=== PATIENT | female | born 2000 | race Two or more races ===

== ENCOUNTER 2024-12-10 16:35 | Emergency (ER) | payer MEDICAID, SELFPAY ==
[2024-12-10 17:00] VITALS: BP 130/72; PULSE 86; RESP 18; TEMP 37.1; O2SAT 97; BMI 27.4
--- NOTE | 2024-12-10 17:05 | PD.EDRME ---
Rapid Medical Screening Exam RME Arrival date/time: 12/10/24 16:35 24-year-old female with no known medical history presents to the emergency room with a chief complaint of cough, congestion, fever x 3 days I have greeted and performed a focused initial assessment of this patient. A comprehensive ED assessment and evaluation of the patient, analysis of all test results, and completion of the medical decision making process will be conducted by additional ED providers. Chief Complaint: Flu Like Symptoms Vital signs: Vital Signs Temperature 98.8 F 12/10/24 17:00 Pulse Rate 86 12/10/24 17:00 Respiratory Rate 18 12/10/24 17:00 Blood Pressure 130/72 12/10/24 17:00 Pulse Oximetry (%) 97 12/10/24 17:00 Oxygen Delivery Method Room Air 12/10/24 17:00 Vital signs reviewed by provider: Yes
--- NOTE | 2024-12-10 17:21 | EDNOTE_ITS ---
Upper Respiratory Inf. RME/HPI General Chief Complaint: Flu Like Symptoms Stated Complaint: Cough X 2 weeks, fever 2 days ago Time Seen by Provider: 12/10/24 17:21 Source: patient Arrival date/time: 12/10/24 16:35 24-year-old female with no known medical history presents to the emergency room with a chief complaint of cough congestion and fever x 3 days. Patient states she has had a cough for 2 weeks. Mode of arrival: ambulatory Limitations: no limitations RME / HPI RME / HPI Narrative: 12/10/24 16:35 24-year-old female with no known medical history presents to the emergency room with a chief complaint of cough, congestion, fever x 3 days I have greeted and performed a focused initial assessment of this patient. A comprehensive ED assessment and evaluation of the patient, analysis of all test results, and completion of the medical decision making process will be conducted by additional ED providers. Related Data Previous Rx's ?Medication ?Instructions ?Recorded cyclobenzaprine 5 mg tablet 5 mg PO QHSPRN PRN muscle spasm 03/10/23 #10 tabs ibuprofen 600 mg tablet 600 mg PO TID PRN pain #30 t abs 03/10/23 Allergies Allergy/AdvReac Type Severity Reaction Status Date / Time NKA* Allergy Uncoded 03/10/23 21:17 Review of Systems Review of Systems Systems Reviewed: All systems reviewed, normal except as documented Constitutional Constitutional: Reports system reviewed and no additional complaints, except as documented, Denies fatigue, Reports fever(s), Denies headache(s) and Denies weakness Eyes Eyes: Reports system reviewed and no additional complaints, except as documented, Denies blurry vision and Denies change in vision ENT Ears, Nose, Mouth, and Throat: Reports system reviewed and no additional complaints, except as documented, Denies otalgia, Denies headache(s), Reports nasal congestion, Denies throat swelling and Denies vertigo Cardiovascular Cardiovascular: Reports system reviewed and no additional complaints, except as documented, Denies chest pain, Denies dyspnea and Denies dyspnea on exertion Respiratory Respiratory: Reports system reviewed and no additional complaints, except as documented, Denies chest congestion, Reports cough, Denies dyspnea, Denies dyspnea on exertion and Denies wheezing Gastrointestinal Gastrointestinal: Reports system reviewed and no additional complaints, except as documented, Denies abdominal pain, Denies cramping, Denies nausea and Denies vomiting Genitourinary Genitourinary: Reports system reviewed and no additional complaints, except as documented Musculoskeletal Musculoskeletal: Reports system reviewed and no additional complaints, except as documented and Denies back pain Integumentary/Breasts Skin/Breast: Reports system reviewed and no additional complaints, except as documented and Denies wounds Neurologic Neurologic: Reports system reviewed and no additional complaints, except as documented, Denies confusion, Denies headache(s), Denies lack of coordination, Denies vertigo and Denies weakness Psychiatric Psychiatric: Reports system reviewed and no additional complaints, except as documented, Denies anxiety, Denies confusion, Denies depression, Denies paranoia, Denies suicidal ideation and Denies tactile hallucinations Endocrine Endocrine: Reports system reviewed and no additional complaints, except as documented and Denies fatigue Hematologic/Lymphatic Hematologic/Lymphatic: Reports system reviewed and no additional complaints, except as documented and Denies lymphadenopathy Allergic/Immunologic Allergic/Immunologic: Reports system reviewed and no additional complaints, except as documented, Denies throat swelling, Denies urticaria and Denies wheezing Past Medical History Social History SMOKING STATUS: Never smoker ED Exam General Limitations: Present no limitations General appearance: Present alert and in no apparent distress Head Head exam: Present atraumatic Eye Eye exam: Present normal appearance, PERRL and EOMI ENT ENT exam: Present normal exam, normal oropharynx and mucous membranes moist Neck Neck exam: Present normal inspection, full ROM and trachea midline Chest Chest inspection: Present normal inspection and symmetric chest wall rise Respiratory Respiratory exam: Present normal lung sounds bilaterally; Absent respiratory distress, wheezes, stridor, accessory muscle use or prolonged expiratory phase Cardiovascular Cardiovascular exam: Present regular rate, normal rhythm and normal heart sounds Abdominal Exam Abdominal exam: Present soft and normal bowel sounds Extremities Exam Extremities exam: Present normal inspection and full ROM Back Exam Back exam: Present normal inspection and full ROM Neurological Exam Neurological exam: Present alert, oriented X3 and CN II-XII intact Psychiatric Psychiatric exam: Present normal affect and normal mood Skin Skin exam: Present warm, dry, intact and normal color Course Quality Measures none Orders Category Date Time Status Bedside COVID-19 Antigen Test NOW Care 12/10/24 17:05 Completed Bedside Influenza A&B Antigen Test NOW Care 12/10/24 17:05 Completed Vital Signs Vital signs: Vital Signs Temperature 98.8 F 12/10/24 17:00 Pulse Rate 86 12/10/24 17:00 Respiratory Rate 18 12/10/24 17:00 Blood Pressure 130/72 12/10/24 17:00 Pulse Oximetry (%) 97 12/10/24 17:00 Oxygen Delivery Method Room Air 12/10/24 17:00 O2 saturation 97% within normal limits Upper Respiratory Infection MDM Narrative MDM Narrative:: 24-year-old female with no known medical history presents to the emergency room with a chief complaint of cough congestion and fever x 3 days. Patient states she has had a cough for 2 weeks. Patient is hemodynamically stable and in no apparent distress. Lung sounds are clear bilaterally with no wheezing or any abnormal breath sounds. The patient is afebrile with an O2 saturation of 97% on room air. Patient tested positive for COVID-19 Patient was educated to continue to take Tylenol and ibuprofen for fever management and increase her oral fluid intake. Patient was discharged and educated to follow-up with primary care provider and return to the emergency room for any evidence of worsening signs or symptoms Patient data External records reviewed:: [facility] previous records Clinical information provided by:: patient Social determinants that could affect healthcare access:: none Patient has the following chronic illnesses:: No chronic illness How is presenting disease/condition affected by chronic disease/condition?: no chronic disease Evaluation data The following diagnostics were reviewed and interpreted by me:: lab results and radiology exam(s) Lab and/or radiology exams considered but not ordered:: Labs and radiology exams considered and ordered Interpretation Summary: N/A Medications / Prescriptions Medications or Prescriptions considered but not ordered:: N/A Medication administrations:: N/A Consultations Consultation(s) initiated? (list below): No Diagnosis Upper Respiratory Differential Diagnosis: upper respiratory infection, viral infection, bronchitis, influenza and other (COVID-19) Most likely diagnosis given after review of the tests above:: COVID-19 Admission Indicated Admission indicated?: not indicated Admission Request Was there a request for admission?: No Disposition Plan Disposition Plan: Discharge Discharge Attestation Discharge Attestation: The patient and all family members were given an opportunity to ask questions and understood the discharge instructions. Discharge instructions specifically effects, indications for sooner follow up or return to the emergency department, and the expected course of current diagnosis. Patient condition: Stable Discharge Plan Plan Patient Disposition: HOME (Self Care) Disposition Comment: Stable Prescriptions/Referrals Prescriptions/Med Rec: No Action ibuprofen 600 mg tablet 600 mg PO TID PRN (Reason: pain) Qty: 30 0RF cyclobenzaprine 5 mg tablet 5 mg PO QHSPRN PRN (Reason: muscle spasm) Qty: 10 0RF Problem List Clinical Impression: COVID-19 Patient/Caregiver Discharge Instructions Education Materials: 2018-nCoV Additional Instructions: Please follow-up with your primary care provider in the next 24 to 48 hours. You tested positive for COVID-19. Please continue to take Tylenol and ibuprofen for fever management Please increase your oral and fluid intake For any evidence of worsening signs or symptoms return to the emergency room immediately Print Language: Nepali Stand Alone Forms: Kirti Award Info., Work/School Release, Patient Portal Info Letter PA/CLOTHING MANAGER Supervising Physician PA/THELMA Supervising Physician: Dr. Matamoros
== END 2024-12-10 18:17 | disposition home or self-care (01) ==
LOC: SERX 17:51
PROVIDERS: Emergency Provider Emergency Medicine
DX: U07.1 COVID-19 (principal)
CPT/HCPCS: 87400; 87811; 99283

== ENCOUNTER 2025-01-18 23:28 | Emergency (ER) | payer MEDICAID, SELFPAY ==
[2025-01-18 23:29] VITALS: BMI 27.6
[2025-01-19 00:58] VITALS: BP 127/79; PULSE 95; RESP 20; TEMP 36.8; O2SAT 99
--- NOTE | 2025-01-19 01:36 | PD.EDRME ---
Rapid Medical Screening Exam RME Arrival date/time: 01/18/25 23:28 Chief Complaint: Flu Like Symptoms Time Seen by Provider: 01/19/25 01:27 Vital signs: Vital Signs Temperature 98.3 F 01/19/25 00:58 Pulse Rate 95 01/19/25 00:58 Respiratory Rate 20 01/19/25 00:58 Blood Pressure 127/79 01/19/25 00:58 Pulse Oximetry (%) 99 01/19/25 00:58 Oxygen Delivery Method Room Air 01/19/25 00:58 Vital signs reviewed by provider: Yes RME Narrative: 24-year-old female currently 8 weeks A0 presents for evaluation of headache x 1 day. She notes dysuria and intermittent suprapubic tenderness x 3 days. Denies vaginal bleeding and cramping.
[2025-01-19] MEDS: ACETAMINOPHEN 325 MG TABLET 650 MG PO (01:45)
--- NOTE | 2025-01-19 02:40 | XR_ITS ---
Examination: PA lateral chest 2 views Technique: Upright PA lateral chest 2 views Exam date and time: January 19, 2025 0151 hrs. Indications: Coughing beginning one month ago. Findings: Accentuation basilar bronchovascular markings. No lobar pneumonia. Normal heart size Impression: Mild basilar bronchitis pattern
[2025-01-19 04:55] VITALS: BP 116/76; PULSE 76; RESP 18; TEMP 37; O2SAT 98
--- NOTE | 2025-01-24 15:24 | PD.EDURI ---
Upper Respiratory Inf. RME/HPI General Chief Complaint: Flu Like Symptoms Stated Complaint: COUGH X1 MONTH Time Seen by Provider: 01/19/25 01:27 Arrival date/time: 01/18/25 23:28 RME / HPI RME / HPI Narrative: 24-year-old female currently presents for evaluation of cough x1 month. Related Data Previous Rx's ?Medication ?Instructions ?Recorded cyclobenzaprine 5 mg tablet 5 mg PO QHSPRN PRN muscle spasm 03/10/23 #10 tabs ibuprofen 600 mg tablet 600 mg PO TID PRN pain #30 tabs 03/10/23 albuterol sulfate 90 mcg/actuation 2 puff inhalation Q6H PRN 01/19/25 aerosol inhaler (Ventolin HFA) shortness of breath or wheezing #6.7 grams cetirizine 10 mg capsule (Zyrtec) 10 mg PO QDAY 30 days #30 caps 01/19/25 Allergies Allergy/AdvReac Type Severity Reaction Status Date / Time NKA* Allergy Uncoded 03/10/23 21:17 Course Orders Category Date Time Status Bedside COVID-19 Antigen Test NOW Care 01/19/25 01:35 Completed Bedside Influenza A&B Antigen Test NOW Care 01/19/25 01:36 Completed CXR2 [XR chest 2V] Stat Exams 01/19/25 02:40 Completed Acetaminophen Tab [Tylenol Tab] Med 01/19/25 01:35 Discontinued 650 mg PO X1 ONE Vital Signs Vital signs: Vital Signs Temperature 98.3 F 01/19/25 00:58 Pulse Rate 95 01/19/25 00:58 Respiratory Rate 20 01/19/25 00:58 Blood Pressure 127/79 01/19/25 00:58 Pulse Oximetry (%) 99 01/19/25 00:58 Oxygen Delivery Method Room Air 01/19/25 00:58 Upper Respiratory Infection Medications / Prescriptions Medication administrations:: Medication Administration History Discontinued Medications Acetaminophen (Acetaminophen 325 Mg Tablet) 650 mg PO X1 ONE Stop: 01/19/25 01:36 Last Admin: 01/19/25 01:45 Dose: 650 mg Documented By: BEBA Discharge Plan Plan Patient Disposition: HOME (Self Care) Disposition Comment: stable Prescriptions/Referrals Prescriptions/Med Rec: New Zyrtec 10 mg capsule 10 mg PO QDAY 30 Days Qty: 30 0RF albuterol sulfate [Ventolin HFA] 90 mcg/actuation HFA aerosol inhaler 2 puff inhalation Q6H PRN (Reason: shortness of breath or wheezing) Qty: 6.7 0RF No Action ibuprofen 600 mg tablet 600 mg PO TID PRN (Reason: pain) Qty: 30 0RF cyclobenzaprine 5 mg tablet 5 mg PO QHSPRN PRN (Reason: muscle spasm) Qty: 10 0RF Referrals: Bill Rodarte MD [Primary Care Provider] - In 1 week Problem List Clinical Impression: Seasonal allergies Patient/Caregiver Discharge Instructions Other Activity Instructions:: Take Zyrtec once daily for seasonal allergies. Continue to monitor cough and follow-up with primary care for further evaluation within the week. Use albuterol inhaler as needed for wheezing. Return to ED if your symptoms worsen or change. Education Materials: ED Allergy Seasonal (AZERBAIJANI) Print Language: Divehi Stand Alone Forms: Kirti Award Info., Patient Portal Info Letter PA/OFFICE MANAGER EXECUTIVE ASSISTANT Supervising Physician PA/OFFICE MANAGER EXECUTIVE ASSISTANT Supervising Physician: Dr. Bradshaw
== END 2025-01-19 04:56 | disposition home or self-care (01) ==
PROVIDERS: Emergency Provider Emergency Medicine; PCP Family Medicine
DX: J30.2 Other seasonal allergic rhinitis (principal)
CPT/HCPCS: 71046; 81001; 87400; 87811; 99283; A9270

== ENCOUNTER 2025-08-27 20:39 | Emergency (ER) | payer MEDICAID, SELFPAY ==
[2025-08-27 20:40] VITALS: BMI 27.6
[2025-08-27 20:49] VITALS: BP 131/78; PULSE 100; RESP 18; TEMP 36.7; O2SAT 100
--- NOTE | 2025-08-27 21:00 | XR_ITS ---
Examination: OB Transvaginal ultrasound of the pelvis, complete Technique: Transvaginal sonographic images pelvis performed using yun scale imaging Exam date and time: August 27, 2025, 2145 hours INDICATIONS: Pelvic pain today early by history. FINDINGS: Uterus 10.5 cm, CRL 0.6 cm corresponds to 6 weeks 3 days gestational age Cardiac motion 137 bpm Subchorionic hemorrhage 14 x 8 mm Right ovary 2.4 cm arterial flow Left ovary obscured by bowel gas IMPRESSION: Intrauterine gestation 6 weeks 3 days, recommend short-term follow-up pelvic sonography given the subchorionic hemorrhage
--- NOTE | 2025-08-27 21:00 | PD.EDRME ---
Rapid Medical Screening Exam [facility] Arrival date/time: 08/27/25 20:39 24F at approximately 7 weeks and with no significant PMH presents to ED with several hours of pelvic pain and vaginal spotting. Patient denies dysuria. Chief Complaint: Vaginal Bleeding Time Seen by Provider: 08/28/25 01:55 Vital signs: Vital Signs Temperature 98.0 F 08/27/25 20:49 Pulse Rate 100 08/27/25 20:49 Respiratory Rate 18 08/27/25 20:49 Blood Pressure 131/78 H 08/27/25 20:49 Pulse Oximetry (%) 100 08/27/25 20:49 Oxygen Delivery Method Room Air 08/27/25 20:49 Exam: Well-appearing Clinical Impression: Miscarriage vs vs vaginal bleeding vs ectopic vs ovarian cyst vs subchorionic hemorrhage
[2025-08-27 21:22] LABS: Collection Type, Urine Clean Catch
[2025-08-27 21:23] LABS: Basophils # (Auto) 0.1 Thou/mm3 (0.0-0.2); Basophils % (Auto) 1 % (0-2.5); Eosinophils # (Auto) 0.3 Thou/mm3 (0.0-0.5); Eosinophils % (Auto) 2 % (0-10); Hematocrit 36.1 % (36.0-46.0); Hemoglobin 11.9 g/dL (12.0-16.0); Immature Granulocytes Auto 0.05 Thou/mm3 (0.00-0.00); Lymphocytes # (Auto) 3.1 Thou/mm3 (1.0-4.8); Lymphocytes % (Auto) 26 % (10-50); Mean Corpuscular HGB Conc 33.0 g/dl (31.0-37.0); Mean Corpuscular Hemoglobin 28.1 pg (25.0-35.0); Mean Corpuscular Volume 85 fL (80-100); Monocytes # (Auto) 0.9 Thou/mm3 (0.0-0.8); Monocytes % (Auto) 7 % (0-12); Neutrophils # (Auto) 7.6 Thou/mm3 (1.8-7.7); Neutrophils % (Auto) 64 % (37-80); Nucleated Red Blood Cell # 0.00 Thou/mm3 (0.00-0.00); Nucleated Red Blood Cell % 0 /100 WBC (0); Platelet Count 198 Thou/mm3 (140-440); RDW Standard Deviation 41.6 fL (36.4-46.3); Red Blood Count 4.23 Miln/mm3 (4.00-5.20); White Blood Count 12.0 Thou/mm3 (3.6-11.0)
[2025-08-27 21:26] LABS: Bacteria,Urine Rare; Bilirubin,Urine Negative (Negative); Blood,Urine Negative (Negative); Clarity,Urine Clear (Clear/Hazy); Color,Urine Lt-Yellow (Lt Yel-Yel); Glucose, Urine Negative (Negative); Ketones,Urine Negative (Negative); Leukocyte Esterase,Urine Negative (Negative); Nitrite,Urine Negative (Negative); PH,Urine 6.0 (5.0-7.0); Protein,Urine Trace (Neg - Trace); RBC,Urine 2 /hpf (0-3); Specific Gravity,Urine 1.032 (1.001-1.035); Squamous Epithelial Cell,Urine 2 /hpf (0-5); Urobilinogen,Urine Negative mg/dL (0.0-1.0); WBC,Urine 2 /hpf (0-5)
[2025-08-27 21:46] LABS: Alanine Aminotransferase 13 U/L (10-49); Albumin, Serum 4.7 gm/dL (3.5-5.0); Albumin/Globulin Ratio 2.0 (1.2-2.2); Alkaline Phosphatase 70 U/L (46-116); Anion Gap 9 (7-16); Aspartate Amino Transferase 16 U/L (0-34); BUN/Creatinine Ratio 9 Ratio (12-20); Bilirubin,Total 0.2 mg/dL (0.3-1.2); Blood Urea Nitrogen 7 mg/dL (9-23); Calcium 9.4 mg/dL (8.3-10.6); Calcium (Corrected) 9.4 mg/dL (8.5-10.1); Carbon Dioxide 22.4 mMol/L (20.0-31.0); Chloride 108 mMol/L (98-107); Creatinine (Component) 0.8 mg/dL (0.6-1.3); Estimated Creatinine Clearance 103.2 mL/min (>60); Globulin 2.4 gm/dL (2.3-3.5); Glucose 101 mg/dL (74-106); Osmolality,Calculated 275 (275-295); Potassium 4.0 mMol/L (3.4-5.1); Sodium 139 mMol/L (136-145); Total Protein 7.1 gm/dL (5.7-8.2); eGFR > 60 See Note
[2025-08-28 01:52] VITALS: BP 139/86; PULSE 80; RESP 18; TEMP 36.9; O2SAT 100
--- NOTE | 2025-08-28 01:55 | EDNOTE_ITS ---
ED OB Contraction Preg RMI/HPI General Chief complaint: Vaginal Bleeding Stated complaint: 7 WKS PREG VAG BLEEDING Time Seen by Provider: 08/28/25 01:55 Arrival date/time: 08/27/25 20:39 24F at approximately 7 weeks and with no significant PMH presents to ED with several hours of pelvic pain and vaginal spotting. Patient denies dysuria. Limitations: no limitations RME / HPI RME / HPI Narrative: 08/27/25 20:39 24F at approximately 7 weeks and with no significant PMH presents to ED with several hours of pelvic pain and vaginal spotting. Patient denies dysuria. Exam: Well-appearing Impression: Miscarriage vs vs vaginal bleeding vs ectopic vs ovarian cyst vs subchorionic hemorrhage Related Data Previous Rx's ?Medication ?Instructions ?Recorded cyclobenzaprine 5 mg tablet 5 mg PO QHSPRN PRN muscle spasm 03/10/23 #10 tabs ibuprofen 600 mg tablet 600 mg PO TID PRN pain #30 t abs 03/10/23 albuterol sulfate 90 mcg/actuation 2 puff inhalation Q 6H PRN 01/19/25 aerosol inhaler (Ventolin HFA) shortness of breath or wheezing #6.7 grams Allergies Allergy/AdvReac Type Severity Reaction Status Date / Time NKA* Allergy Uncoded 08/27/25 20:45 Review of Systems Review of Systems Systems Reviewed: All systems reviewed, normal except as documented Genitourinary Genitourinary: Reports as per HPI, Reports abnormal vaginal bleeding and Reports pelvic pain Past Medical History Past Medical History CARDIAC: Negative Congestive Heart Failure RESPIRATORY: Negative Chronic Obstructive Pulmonary Disease (COPD) GENITOURINARY: Negative Renal Disease ENDOCRINE: Negative Diabetes Mellitus Type 1 or Diabetes Mellitus Type 2 Social History SMOKING STATUS: Never smoker ED Exam General Limitations: Present no limitations General appearance: Present alert and in no apparent distress Head Head exam: Present atraumatic Neck Neck exam: Present normal inspection, full ROM and trachea midline Chest Chest inspection: Present normal inspection and symmetric chest wall rise Neurological Exam Neurological exam: Present alert and oriented X3 Psychiatric Psychiatric exam: Present normal affect and normal mood Skin Skin exam: Present warm, dry, intact and normal color Course Quality Measures none Orders Category Date Time Status US OB transvaginal Stat Exams 08/27/25 21:00 Completed ABO/RH Type Stat Lab 08/27/25 21:15 Completed Beta HCG,Quantitative Stat Lab 08/27/25 21:15 Completed CBC Stat Lab 08/27/25 21:15 Completed CMP [Comprehensive Metabolic Panel] Stat Lab 08/27/25 21:15 Completed UA [Urinalysis] Stat Lab 08/27/25 21:04 Completed Urine Culture Stat Lab 08/27/25 21:04 Received Vital Signs Vital signs: Vital Signs Temperature 98.0 F 08/27/25 20:49 Pulse Rate 100 08/27/25 20:49 Respiratory Rate 18 08/27/25 20:49 Blood Pressure 131/78 H 08/27/25 20:49 Pulse Oximetry (%) 100 08/27/25 20:49 Oxygen Delivery Method Room Air 08/27/25 20:49 O2 at 100% on RA and WNLs Vaginal Bleeding MDM Narrative MDM Narrative: 24F at approximately 7 weeks and with no significant PMH presents to ED with several hours of pelvic pain and vaginal spotting. Patient denies dysuria. Physical exam reveals well-appearing female. Patient is afebrile, calm, and alert. US telerad read viable IUP with small subchorionic hemorrhage. Beta HCG WNLs. Mild leukocytosis and anemia. CMP and UA unremarkable. Patient data External records reviewed:: [facility] previous records Clinical information provided by:: patient Social determinants that could affect healthcare access:: none Patient has the following chronic illnesses:: none How is presenting disease/condition affected by chronic disease/condition?: no chronic disease Evaluation data The following diagnostics were reviewed and interpreted by me:: lab results and radiology exam(s) Lab and/or radiology exams considered but not ordered:: ordered Interpretation Summary: above Medications / Prescriptions Medications or Prescriptions considered but not ordered:: not ordered Medication administrations:: n/a Consultations Consultation(s) initiated? (list below): No Diagnosis Vaginal Bleeding Differential Diagnosis: missed , threatened , dysfunctional uterine bleeding, menometrorrhagia, incomplete , ectopic without intrauterine , vaginal bleeding and other (subchorionic hemorrhage) Most likely diagnosis given after review of the tests above:: subchorionic hemorrhage Admission Indicated Admission indicated?: not indicated Admission Request Was there a request for admission?: No Disposition Plan Disposition Plan: Discharge Discharge Attestation Discharge Attestation: The patient and all family members were given an opportunity to ask questions and understood the discharge instructions. Discharge instructions specifically effects, indications for sooner follow up or return to the emergency department, and the expected course of current diagnosis. Patient condition: Stable Discharge Plan Plan Patient Disposition: HOME (Self Care) Discharge Disposition comment: Stable Prescriptions/Referrals Prescriptions/Med Rec: No Action ibuprofen 600 mg tablet 600 mg PO TID PRN (Reason: pain) Qty: 30 0RF cyclobenzaprine 5 mg tablet 5 mg PO QHSPRN PRN (Reason: muscle spasm) Qty: 10 0RF albuterol sulfate [Ventolin HFA] 90 mcg/actuation HFA aerosol inhaler 2 puff inhalation Q6H PRN (Reason: shortness of breath or wheezing) Qty: 6.7 0RF Referrals: No Primary/Family,Physician [Primary Care Provider] - In 1 week Problem List Clinical Impression: Subchorionic hemorrhage Patient/Caregiver Discharge Instructions Education Materials: Bleeding During Early Additional Instructions: Please follow-up with PCP/OBYGN within 24-48 hours and return immediately if symptoms worsen. Print Language: Indonesian Stand Alone Forms: Patient Portal Info Letter AGUSTINA/THELMA Supervising Physician AGUSTINA/THELMA Supervising Physician: Dr. Garcia
== END 2025-08-28 02:05 | disposition home or self-care (01) ==
PROVIDERS: Physician Assistant; Emergency Provider Emergency Medicine
DX: O20.8 Other hemorrhage in early pregnancy (principal); Z3A.01 Less than 8 weeks gestation of pregnancy
CPT/HCPCS: 36415; 76817; 80053; 81001; 84702; 85025; 86900; 86901; 87086; 99282

== ENCOUNTER 2025-09-01 10:24 | Emergency (ER) | payer MEDICAID, SELFPAY ==
[2025-09-01 10:25] VITALS: BMI 27.6
--- NOTE | 2025-09-01 10:33 | XR_ITS ---
Examination: OB Transvaginal ultrasound of the pelvis, complete Technique: Transvaginal sonographic images pelvis performed using yun scale imaging Exam date and time: September 01, 2025, 15 April INDICATIONS: Onset of vaginal bleeding today FINDINGS: Uterus 8.7 cm CRL 1.0 cm corresponds to 7 weeks 0 days gestational age. Cardiac motion 143 bpm Right ovary 2.7 cm arterial flow Left ovary 2.7 cm arterial flow IMPRESSION: Viable intrauterine gestation 7 weeks 0 days.
[2025-09-01 10:35] VITALS: BP 137/80; PULSE 90; RESP 18; TEMP 36.8; O2SAT 100; BMI 30.1
[2025-09-01 11:02] LABS: Basophils # (Auto) 0.1 Thou/mm3 (0.0-0.2); Basophils % (Auto) 1 % (0-2.5); Eosinophils # (Auto) 0.1 Thou/mm3 (0.0-0.5); Eosinophils % (Auto) 1 % (0-10); Hematocrit 37.9 % (36.0-46.0); Hemoglobin 12.7 g/dL (12.0-16.0); Immature Granulocytes Auto 0.04 Thou/mm3 (0.00-0.00); Lymphocytes # (Auto) 2.3 Thou/mm3 (1.0-4.8); Lymphocytes % (Auto) 25 % (10-50); Mean Corpuscular HGB Conc 33.5 g/dl (31.0-37.0); Mean Corpuscular Hemoglobin 28.0 pg (25.0-35.0); Mean Corpuscular Volume 84 fL (80-100); Monocytes # (Auto) 0.6 Thou/mm3 (0.0-0.8); Monocytes % (Auto) 7 % (0-12); Neutrophils # (Auto) 5.9 Thou/mm3 (1.8-7.7); Neutrophils % (Auto) 66 % (37-80); Nucleated Red Blood Cell # 0.00 Thou/mm3 (0.00-0.00); Nucleated Red Blood Cell % 0 /100 WBC (0); Platelet Count 206 Thou/mm3 (140-440); RDW Standard Deviation 41.3 fL (36.4-46.3); Red Blood Count 4.54 Miln/mm3 (4.00-5.20); White Blood Count 9.0 Thou/mm3 (3.6-11.0)
--- NOTE | 2025-09-01 12:32 | EDNOTE_ITS ---
ED OB Contraction Preg RMI/HPI General Chief complaint: Vaginal Bleeding Stated complaint: VAGINAL SPOTTING; 7 WEEKS OB Time Seen by Provider: 09/01/25 10:26 Arrival date/time: 09/01/25 10:24 24-year-old female presents to the Emergency Department today for complaint of vaginal spotting patient reports being approximately 7 weeks Limitations: no limitations Related Data Previous Rx's ?Medication ?Instructions ?Recorded cyclobenzaprine 5 mg tablet 5 mg PO QHSPRN PRN muscle spasm 03/10/23 #10 tabs ibuprofen 600 mg tablet 600 mg PO TID PRN pain #30 t abs 03/10/23 albuterol sulfate 90 mcg/actuation 2 puff inhalation Q 6H PRN 01/19/25 aerosol inhaler (Ventolin HFA) shortness of breath or wheezing #6.7 grams Allergies Allergy/AdvReac Type Severity Reaction Status Date / Time NKA* Allergy Uncoded 09/01/25 10:27 Review of Systems Review of Systems Systems Reviewed: All systems reviewed, normal except as documented Constitutional Constitutional: Reports system reviewed and no additional complaints, except as documented, Denies fever(s) and Denies headache(s) Eyes Eyes: Reports system reviewed and no additional complaints, except as documented and Denies blurry vision ENT Ears, Nose, Mouth, and Throat: Reports system reviewed and no additional complaints, except as documented, Denies headache(s), Denies nasal congestion and Denies nasal discharge Cardiovascular Cardiovascular: Reports system reviewed and no additional complaints, except as documented, Denies chest pain and Denies dyspnea Respiratory Respiratory: Reports system reviewed and no additional complaints, except as documented, Denies chest congestion, Denies cough and Denies dyspnea Gastrointestinal Gastrointestinal: Reports system reviewed and no additional complaints, except as documented and Denies abdominal pain Genitourinary Genitourinary: Reports system reviewed and no additional complaints, except as documented and Reports abnormal vaginal bleeding Integumentary/Breasts Skin/Breast: Reports system reviewed and no additional complaints, except as documented and Denies rash Neurologic Neurologic: Reports system reviewed and no additional complaints, except as documented, Reports as per HPI and Denies headache(s) Past Medical History Past Medical History CARDIAC: Negative Congestive Heart Failure RESPIRATORY: Negative Chronic Obstructive Pulmonary Disease (COPD) GENITOURINARY: Negative Renal Disease ENDOCRINE: Negative Diabetes Mellitus Type 1 or Diabetes Mellitus Type 2 Social History SMOKING STATUS: Never smoker ED Exam General Limitations: Present no limitations General appearance: Present alert and in no apparent distress Head Head exam: Present atraumatic, normocephalic and normal inspection Eye Eye exam: Present normal appearance, PERRL and EOMI; Absent conjunctival injection ENT ENT exam: Present normal exam, normal oropharynx and mucous membranes moist Neck Neck exam: Present normal inspection, full ROM and trachea midline Chest Chest inspection: Present normal inspection and symmetric chest wall rise Respiratory Respiratory exam: Present normal lung sounds bilaterally; Absent respiratory distress Cardiovascular Cardiovascular exam: Present regular rate, normal rhythm and normal heart sounds Abdominal Exam Abdominal exam: Present soft and normal bowel sounds; Absent distention or tenderness Extremities Exam Extremities exam: Present normal inspection and full ROM Back Exam Back exam: Present normal inspection and full ROM Neurological Exam Neurological exam: Present alert, oriented X3 and CN II-XII intact Psychiatric Psychiatric exam: Present normal affect and normal mood Skin Skin exam: Present warm, dry, intact and normal color Course Quality Measures none Orders Category Date Time Status US OB transvaginal Stat Exams 09/01/25 10:33 Completed Beta HCG,Quantitative Stat Lab 09/01/25 10:45 Completed CBC Stat Lab 09/01/25 10:45 Completed Vital Signs Vital signs: Vital Signs Temperature 98.3 F 09/01/25 10:35 Pulse Rate 90 09/01/25 10:35 Respiratory Rate 18 09/01/25 10:35 Blood Pressure 137/80 H 09/01/25 10:35 Pulse Oximetry (%) 100 09/01/25 10:35 Oxygen Delivery Method Room Air 09/01/25 10:35 O2 saturation 100% on room air within normal limits Vaginal Bleeding MDM Narrative MDM Narrative: 24-year-old female presents to the Emergency Department today for complaint of vaginal spotting patient reports being approximately 7 weeks On exam patient well-appearing patient does not appear toxic no acute distress Lab work and imaging obtained no acute emergent findings noted patient appears to have viable at this time Patient instructed to follow-up with [facility] as soon as possible for worsening symptoms or concerns to return immediately At time of discharge patient has no active bleeding Patient data External records reviewed:: [facility] previous records Clinical information provided by:: patient Social determinants that could affect healthcare access:: none Patient has the following chronic illnesses:: None How is presenting disease/condition affected by chronic disease/condition?: no chronic disease Evaluation data The following diagnostics were reviewed and interpreted by me:: lab results and radiology exam(s) Lab and/or radiology exams considered but not ordered:: Labs radiology obtained Interpretation Summary: By me Medications / Prescriptions Medications or Prescriptions considered but not ordered:: Given Medication administrations:: Given Consultations Consultation(s) initiated? (list below): No Diagnosis Vaginal Bleeding Differential Diagnosis: missed and threatened Most likely diagnosis given after review of the tests above:: Bleeding during Admission Indicated Admission indicated?: not indicated Admission Request Was there a request for admission?: No Disposition Plan Disposition Plan: Discharge Discharge Attestation Discharge Attestation: The patient and all family members were given an opportunity to ask questions and understood the discharge instructions. Discharge instructions specifically effects, indications for sooner follow up or return to the emergency department, and the expected course of current diagnosis. Patient condition: Stable Discharge Plan Plan Patient Disposition: HOME (Self Care) Discharge Disposition comment: stable Prescriptions/Referrals Prescriptions/Med Rec: No Action ibuprofen 600 mg tablet 600 mg PO TID PRN (Reason: pain) Qty: 30 0RF cyclobenzaprine 5 mg tablet 5 mg PO QHSPRN PRN (Reason: muscle spasm) Qty: 10 0RF albuterol sulfate [Ventolin HFA] 90 mcg/actuation HFA aerosol inhaler 2 puff inhalation Q6H PRN (Reason: shortness of breath or wheezing) Qty: 6.7 0RF Referrals: Bill Rodarte MD [Primary Care Provider, Family Practice] - 09/02/25 Problem List Clinical Impression: Vaginal bleeding during Patient/Caregiver Discharge Instructions Education Materials: Bleeding During Early Additional Instructions: Please follow up with your obgyn in the next 24-48hrs for any worsening symptoms return here immediately Print Language: Kyrgyz Stand Alone Forms: Kirti Award Info., Work/School Release, Patient Portal Info Letter PA/THELMA Supervising Physician PA/THELMA Supervising Physician: dr catherine
== END 2025-09-01 13:37 | disposition home or self-care (01) ==
PROVIDERS: Nurse Practitioner Primary Care; Emergency Provider Emergency Medicine; PCP Family Medicine
DX: O20.9 Hemorrhage in early pregnancy, unspecified (principal); Z3A.01 Less than 8 weeks gestation of pregnancy
CPT/HCPCS: 36415; 76817; 84702; 85025; 99283

== ENCOUNTER 2025-09-20 13:00 | Outpatient (AMB) | payer MEDICAID, SELFPAY ==
[2025-09-20 13:09] VITALS: BP 139/75; PULSE 85; RESP 18; TEMP 36.2; O2SAT 98; BMI 28.9
--- NOTE | 2025-09-20 13:09 | OBCLNT_ITS ---
Vital Signs 09/20/25 13:09 Height 1.6 m Height Method Stated Weight 74.049 kg Weight Measurement Method Standing Scale BMI 28.9 BP 139/75 H Blood Pressure Source Automatic Cuff Blood Pressure Location Left Upper Arm Position Sitting Respiration 18 Pulse 85 Pulse Source Monitor Temp 97.2 F Temp Source Oral Pulse Oximetry (%) 98 Oxygen Delivery Method Room Air Allergies/Home Meds Allergies & Medications Allergies NKA* Allergy (Uncoded 09/20/25 13:10) Medication Reconciliation cyclobenzaprine 5 mg tablet 5 mg PO QHSPRN PRN muscle spasm #10 tabs 03/10/23 [Rx Confirmed 09/20/25] ibuprofen 600 mg tablet 600 mg PO TID PRN pain #30 tabs 03/10/23 [Rx Confirmed 09/20/25] albuterol sulfate 90 mcg/actuation aerosol inhaler (Ventolin HFA) 2 puff inhalation Q6H PRN shortness of breath or wheezing #6.7 grams 01/19/25 [Rx Confirmed 09/20/25] Intake Visit Data Collection New Patient or Established: Established Patient (seen at [facility] within 3 years) Reason for Visit:: OBI Seen by Clinical Staff ONLY (RN/MA): No 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 Required: No Do You Feel Safe at Home: Yes Authorities Contacted: N/A PCP or OBGYN visit in last 3 months: Yes Date of Last PCP or OBGYN visit: 09/01/25 Hx Now: Yes Are you currently on any form of Control: No Last menstrual period: 07/06/25 Pain Present Currently: No Pain Scale Used: Rowan-Grimes/Numerical Pain scale:: 0 Smoking Status Smoking Status: Never smoker Immunizations Flu Vaccine in the Last 12 Months: No Flu Vaccine Exclusion Criteria: No Exclusion Criteria Questionnaires Covid-19 Vaccine Questionnaire Has patient been vacinated for Covid-19 Have you been vacinated for Covid-19: Yes PHQ-9 PHQ-2 Over the last 2 weeks, how often have you been bothered by any of the following problems? 1. Little interest or pleasure in doing things: not at all 2. Feeling down, depressed, or hopeless: not at all Total score: 0 PHQ-9 3. Trouble falling or staying asleep, or sleeping too much: Not at all 4. Feeling tired or having little energy: Not at all 5. Poor appetite or overeating: Not at all 6. Feeling bad about yourself - or that you are a failure or have let yourself or your family down: Not at all 7. Trouble concentrating on things, such as reading the newspaper or watching television: Not at all 8. Moving or speaking so slowly that other people could have noticed? - Or the opposite - being so fidgety or restless that you have been moving around a lot more than usual: not at all 9. Thoughts that you would be better off or of hurting yourself in some way: Not at all Total score: 0 If you checked off any problems, how difficult have these problems made it for you to do your work, take care of things at home, or get along with other people?: not difficult at all Source: Developed by Drs. Trevor Caballero, Nika Pulido, Nik Laura and colleagues, with an educational jorge from [employer] 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 Patient had her next visit at [facility]. She was started on prenatals. First. July 05, 2025. This gives EDC April 11. She does have a history of irregular periods. She had some bleeding a week or 2 ago but none bleeding since then she had an ultrasound at [facility] and that was on August 27, 2025. She measured 6 weeks 3 days given the EDC of April 14, 2025 OB panel with NIPT and carrier screen and A1c today. Schedule at [facility] for anatomy scan due to subch orionic hemorrhage. Discussed SAB precautions. Increase rest and fluids. Return in 4 weeks OB check Menstrual History Menstrual reliability: definite Flow: normal Menstrual regularity: regular Monthly: Yes Age at menarche: 13 On control pills at conception: No OB History : 1 Infection History & Risk Evaluation History of STDs: none HIV risk evaluation: low risk Hepatitis B risk evaluation: low risk Patient or partner has history of Genital Herpes: No Varicella/chicken pox status: immunized Genetic Screening & History Genetic Screening/Teratology Counseling - Includes patient, baby's father, or anyone in either family with: 1. Patient's age 35 years or older as of estimated date of delivery: No 2. Thalassemia (Marshallese, Kazakh, Mediterranean, or Background); MCV less than 80: No 3. Neural Tube Defect (Meningomyelocele, Spina Bifida, or Anencephaly): No 4. Congenital Heart Defect: No 5. Down Syndrome: No 6. London-Sachs (Ashkenazi Oriental Orthodox, Cajun, Italian [place]): No 7. Mary Jo Disease (Ashkenazi Oriental Orthodox): No 8. Familial Dysautonomia (Ashkenazi Oriental Orthodox): No 9. Sickle Cell Disease or Trait (): No 10. Hemophilia or other blood disorders: No 11. Muscular Dystrophy: No 12. Cystic Fibrosis: No 13. Jayme's Chorea: No 14. Mental Retardation/Autism: No 15. Other inherited genetic or chromosomal disorder: No 16. Maternal Metabolic Disorder (EG,TYPE 1 Diabetes, PKU): No 17. Patient or baby's father had a child with defects not listed above: No 18. Recurrent loss or a stillbirth: No 19. Medications (including supplements, vitamins, herbs or otc drugs)/illicit/recreational drugs/alcohol since last menstrual period: No 20. Any other: No Infection History 1. Live with someone with TB or exposed to TB: No 2. Rash or viral illness since last menstrual period: No 3. Hepatitis B,C: No Other (see comments) Source: [employer] Office Procedures OBC Clinic LOC & Office Proc's Nursing/Assessment Patient Status: Established Patient OB Clinic Nursing Assessment: Medication Reconciliation, Update PMH in EMR and Vital Signs OB Clinic Coordination of Care: Consent,records obtained, informed consent, Educ ation Simp Pt/Fam, Lab and Imaging orders, Results/Orders obtained and Staff clarify orders Special Needs: Heart tones Established Patient Charge Established Patient Point Assignment: 110 Established Patient Point Charge: EP Level 3 (80-115) Assessment & Plan Diagnosis / Problem List (1) Encounter for supervision of high risk in first trimester, antepartum: Status: Acute Plan Discussed SAB precautions. OB panel today with NIPT and carrier screen and A1c. Schedule with [facility] for anatomy scan and viability. Discussed SAB precautions. Continue prenatals. Return in 4 weeks OB check Additional Plan Follow Up: 4 Weeks (obc)
== END 2025-09-20 13:42 | disposition home or self-care (01) ==
LOC: HODSOBC 13:00
PROVIDERS: Supervising Provider Advanced Practice Midwife; Visit Provider Advanced Practice Midwife
DX: O09.91 Supervision of high risk pregnancy, unspecified, first trimester (principal); Z3A.11 11 weeks gestation of pregnancy
CPT/HCPCS: 99213; G0463

== ENCOUNTER 2025-10-18 14:09 | Outpatient (AMB) | payer MEDICAID, SELFPAY ==
[2025-10-18 14:20] VITALS: BP 144/84; PULSE 100; RESP 20; TEMP 36.8; O2SAT 99; BMI 29.5
--- NOTE | 2025-10-18 14:20 | OBCLNT_ITS ---
Vital Signs 10/18/25 14:20 Height 1.6 m Height Method Stated Weight 75.41 kg Weight Measurement Method Standing Scale BMI 29.5 BP 144/84 H Blood Pressure Source Automatic Cuff Blood Pressure Location Left Upper Arm Position Sitting Respiration 20 Pulse 100 Pulse Source Monitor Temp 98.3 F Temp Source Oral Pulse Oximetry (%) 99 Oxygen Delivery Method Room Air Allergies/Home Meds Allergies & Medications Allergies NKA* Allergy (Uncoded 10/18/25 14:20) Medication Reconciliation aspirin 81 mg tablet,delayed release (Adult Aspirin Regimen) 81 mg PO QDAY #60 tabs 10/18/25 [Rx] labetalol 200 mg tablet 100 mg (1/2 x 200 mg) PO TID 30 days #60 tabs 10/18/25 [Rx] vitamins-iron fumarate 66 mg iron-folic acid 1 mg tablet tab PO 10/18/25 [History Confirmed 10/18/25] Immunizations Immunizations Flu Vaccine in the Last 12 Months: No Flu Vaccine Exclusion Criteria: Refused by Patient Care OB Visit Log OB Flowsheet Initial Weight: Not Recorded Date -?-?-?-?-?-?-?-?-?-?-?-?- EGA Weight BP Alb Glu CTX Pres Fundal ht FHR Mov Dilation Station Effacement Hx Notes Visit Note 09/20/25 -?-?-?-?-?-?-?-?-?-?-?-?- 11w 0d 74.049 kg 139/75 absent unknown 11 145 absent 24-year-old 1 para 0 for OBI. Patient had her next visit at [facility]. She was started on prenatals. First. July 05, 2025. This gives EDC April 11, 2026. She does have a history of irregular periods. She had some bleeding a week or 2 ago but none bleeding since then she had an ultrasound at [facility] and that was on August 27, 2025. She measured 6 weeks 3 days given the EDC of April 14, 2025 OB panel with NIPT and carrier screen and A1c today. Schedule at [facility] for anatomy scan due to subchorionic hemorrhage. Discussed SAB precautions. Increase rest and fluids. Return in 4 weeks OB check 10/18/25 -?-?-?-?-?-?-?-?-?-?-?-?- 15w 0d 75.41 kg 144/84 absent unknown 15 145 absent Denies headache. Denies blurred vision. Denies movement. Denies leaking, bleeding, contractions Denies headache. Denies dakota rred vision. Denies movement. Denies leaking, bleeding, contractions, aFP today. PIH labs with 24-hour protein today. Start labetalol 100 p.o. twice daily. After consult with MD. Discussed preeclampsia precautions. Discussed diet and weight gain. Return in 4 weeks OB check aFP today. PIH labs with 24 -hour protein today. Start labetalol 100 p.o. twice daily. After consult with MD. Discussed preeclampsia precautions. Discussed diet and weight gain. Return in 4 weeks OB check. Okay to take Tylenol for back pain comfort measures LINDA Calculator Estimated Delivery Date Method Current WG Current Estimate 04/11/26 LMP (Certain) 15w 0d Other Estimates 04/19/26 Ultrasound #1 13w 6d 04/19/26 Manual 13w 6d final linda Notes Visit Date: 10/18/25 Last Updated by: Mandie Ward CNM sono: 10/11/25: 12w6. LINDA: 04/19/26, normal NT scan OB panel: O+,abs-, rpr;;nr, rub imm, hbsag-,hiv-,hc-,GC/CT-, , , Visit Date: 09/20/25 Last Updated by: Mandie Ward CNM 24 yo . lmp 07/05/25. EDC: 04/11/26 Office Procedures OBC Clinic LOC & Office Proc's Nursing/Assessment Patient Status: Established Patient OB Clinic Nursing Assessment: Medication Reconciliation, Update PMH in EMR and Vital Signs OB Clinic Coordination of Care: Complex Care and Chronic Disease 1-5, Consent,records obtained, informed consent, Education Simp Pt/Fam, 1 Ins Authorization, Lab and Imaging orders, Results/Orders obtained and Staff clarify orders Special Needs: Heart tones Miscellaneous Interventions: Blood/Urine Collection Established Patient Charge Established Patient Point Assignment: 180 Established Patient Point Charge: EP Level 5 (160-above) Assessment & Plan Diagnosis / Problem List (1) Encounter for supervision of high risk in first trimester, antepartum: Status: Acute (2) Encounter for supervision of high risk in second trimester, antepartum: Status: Acute (3) Gestational [-induced] hypertension without significant proteinuria, complicating childbirth: Status: Acute Plan PIH panel today with 24-hour urine. aFP today. Continue low-dose baby aspirin. And labetalol 100 p.o. twice daily. Discussed PIH signs and symptoms and p recautions. Increase fluids. Discussed diet and weight. And return in 4 weeks OB check Additional Plan Follow Up: 4 Weeks (obc)
== END 2025-10-18 15:11 | disposition home or self-care (01) ==
PROVIDERS: Supervising Provider Advanced Practice Midwife; Visit Provider Advanced Practice Midwife
DX: O09.892 Supervision of other high risk pregnancies, second trimester (principal); O13.2 Gestational [pregnancy-induced] hypertension without significant proteinuria, second trimester; Z28.21 Immunization not carried out because of patient refusal; Z3A.15 15 weeks gestation of pregnancy
CPT/HCPCS: 99215; G0463